=== PATIENT | male | born 1995 | race Caucasian/White ===

== ENCOUNTER 2024-03-14 06:00 | Outpatient (RCR) | payer OTHER, SELFPAY | END 2024-04-08 23:59 | disposition home or self-care (01) | LOC: WPT 06:00 | PROVIDERS: Visit Provider Orthopaedic Surgery | DX: Z98.890 Other specified postprocedural states (principal) | CPT/HCPCS: 97110; 97112; 97140; 97161; 97530 ==

== ENCOUNTER 2024-04-17 10:34 | Outpatient (RCR) | payer OTHER, SELFPAY | END 2024-05-09 23:59 | disposition home or self-care (01) | LOC: WPT 10:34 | PROVIDERS: Visit Provider Orthopaedic Surgery | DX: Z98.890 Other specified postprocedural states (principal) | CPT/HCPCS: 97110; 97112; 97140; 97530 ==

== ENCOUNTER 2024-05-10 06:00 | Outpatient (RCR) | payer OTHER, SELFPAY | END 2024-06-09 23:59 | disposition home or self-care (01) | LOC: WPT 06:00 | PROVIDERS: Visit Provider Orthopaedic Surgery | DX: Z47.89 Encounter for other orthopedic aftercare (principal) | CPT/HCPCS: 97110; 97112; 97140; 97530 ==

== ENCOUNTER 2024-06-10 06:00 | Outpatient (RCR) | payer OTHER, SELFPAY | END 2024-07-07 23:59 | disposition home or self-care (01) | LOC: WPT 06:00 | PROVIDERS: Visit Provider Orthopaedic Surgery | DX: Z98.890 Other specified postprocedural states (principal) | CPT/HCPCS: 97110; 97112; 97530 ==

== ENCOUNTER 2024-07-08 06:00 | Outpatient (RCR) | payer OTHER, SELFPAY | END 2024-08-07 23:59 | disposition home or self-care (01) | LOC: WPT 06:00 | PROVIDERS: Visit Provider Orthopaedic Surgery | DX: Z98.890 Other specified postprocedural states (principal) | CPT/HCPCS: 97110; 97112; 97530 ==